=== PATIENT | male | born 1975 | race Native Hawaiian/Other Pacific Islander ===

== ENCOUNTER 2021-12-29 08:45 | Emergency (ER) | payer OTHER ==
[2021-12-29 08:56] VITALS: BP 140/86; PULSE 80; RESP 20; TEMP 97.9
[2021-12-29] MEDS ORDERED: KETOROLAC 15 MG/ML 1 ML VIAL IM STA (09:17)
--- NOTE | 2021-12-29 09:23 | ED ---
General Adult HPI - General Chief complaint: Extremity Problem,Nontraumatic Stated complaint: lt shoulder pain Time Seen by Provider: 12/29/21 09:10 Source: patient, family, RN notes reviewed, old records reviewed Mode of arrival: ambulatory Limitations: no limitations - History of Present Illness Initial comments: This is a well-appearing 46-year-old male that presents to the emergency room with 3 days of left shoulder pain. Patient states that he woke up with the pain. Denies any trauma. No fevers, no nausea vomiting or diarrhea. Patient states that it is worse with movement. 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 -: days(s) (3) Location: left, upper extremity (shoulder) Radiation: distal (upper arm) Severity scale (1-10): 10 Quality: constant Consistency: constant Improves with: immobilization Worsens with: movement Associated Symptoms: denies other symptoms Treatments Prior to Arrival: none - Related Data Previous Rx's Medication Instructions Recorded Disulfiram 250 mg PO DIRECTED #50 tablet 11/22/14 Nicotine 14Mg/24Hr Patch [Habitrol] 1 patch TRANSDERM DAILY #14 patch 11/22/14 Ibuprofen [Motrin] 800 mg PO Q8HR PRN #30 tab 12/29/21 Allergies Allergy/AdvReac Type Severity Reaction Status Date / Time No Known Allergies Allergy Verified 12/29/21 08:56 Review of Systems ROS Statement: Those systems with pertinent positive or pertinent negative responses have been documented in the HPI. ROS Other: All systems not noted in ROS Statement are negative. Past Medical History Past Medical History: Hypertension History of Any Multi-Drug Resistant Organisms: None Reported Past Surgical History: No Surgical Hx Reported Past Psychological History: Depression Smoking Status: Current every day smoker Past Alcohol Use History: Occasional Past Drug Use History: None Reported - Past Family History Mother Family Medical History: Hypertension Father Family Medical History: CVA/TIA General Exam Limitations: no limitations General appearance: alert, in no apparent distress Head exam: Present: atraumatic Neck exam: Present: normal inspection, full ROM. Absent: tenderness, meningismus Respiratory exam: Present: normal lung sounds bilaterally. Absent: respiratory distress, chest wall tenderness Cardiovascular Exam: Present: regular rate Left Shoulder Exam: Present: full ROM, tenderness, other (Negative Apley scratch test). Absent: swelling, deformity, crepitus, dislocation, tenderness over AC joint Upper Arm exam: Present: full ROM. Absent: tenderness Elbow exam: Present: full ROM. Absent: tenderness, swelling Vascular: Present: normal capillary refill. Absent: vascular compromise Back exam: Absent: tenderness, CVA tenderness (R), CVA tenderness (L) Neurological exam: Present: alert, oriented X3 Psychiatric exam: Present: normal affect, normal mood Skin exam: Present: warm, dry, normal color. Absent: cyanosis, diaphoretic Course Vital Signs 12/29/21 08:52 Temperature 97.9 F Pulse Rate 80 Respiratory 20 Rate Blood Pressure 140/86 O2 Sat by Pulse 99 Oximetry Medical Decision Making - Medical Decision Making Patient is full range of motion but does complain of movement with abduction. Apley scratch test negative. Patient denies trauma. This is likely due to repetitive use as patient does move trees for a living. He is neurovascularly intact. He'll be referred to orthopedics. He was given Toradol shot for pain. Patient is agreeable to this plan of care. Disposition Clinical Impression: Shoulder pain, left Disposition: HOME SELF-CARE Condition: Good Instructions (If sedation given, give patient instructions): Shoulder Pain (ED) Prescriptions: Ibuprofen [Motrin] 800 mg PO Q8HR PRN #30 tab PRN Reason: Pain Is patient prescribed a controlled substance at d/c from ED?: No Referrals: Brandon Salmon MD [Primary Care Provider] - 1-2 days Eric Fox MD [Medical Doctor] - 1-2 days Time of Disposition: 09:34
== END 2021-12-29 10:00 | disposition home or self-care (01) ==
LOC: EC 08:45
DX: M25.512 Pain in left shoulder (principal); I10 Essential (primary) hypertension; F32.A Depression, unspecified; F17.200 Nicotine dependence, unspecified, uncomplicated; Z79.899 Other long term (current) drug therapy
CPT/HCPCS: 99283; 96372; J1885